=== PATIENT | female | born 1950 | race Caucasian/White ===

== ENCOUNTER 2019-01-23 04:01 | Emergency (ER) | payer OTHER ==
[~2019-01-23] VITALS: Ht 170.2 cm; Wt 81.8 kg
[2019-01-23] MEDS ORDERED: PRAL1INJ SC (04:14)
[2019-01-23] MEDS ORDERED: ACYC400T PO (04:14)
[2019-01-23] MEDS ORDERED: LOSA50TA88 PO (04:14)
[2019-01-23] MEDS ORDERED: CARD120T4 PO (04:14)
[2019-01-23] MEDS ORDERED: COUM2.5T17 PO (04:14)
[2019-01-23] MEDS ORDERED: COUM1TAB17 PO (04:14)
[2019-01-23 06:52] VITALS: BP 115/68
--- NOTE | 2019-01-23 21:34 | ECGEPIP ---
[facility] - ED Test Date: 2019-01-23 Pat Name: SHARON HOOKS Department: Room: - Gender: Female [employer] E[employer]ician: : [id number] Requested By: SHIREEN CAMACHO Order Number: [id number] Reading MD: Mery Gardner Measurements Intervals Mason Rate: 137 P: GA: 0 QRS: -23 QRSD: 94 T: -11 QT: 296 QTc: 447 Interpretive Statements ATRIAL FIBRILLATION WITH RAPID VENTRICULAR RESPONSE BORDERLINE LEFT AXIS DEVIATION MODERATE VOLTAGE CRITERIA FOR LVH, CONSIDER NORMAL VARIANT MODERATE ST DEPRESSION NO PRIOR Electronically Signed on 01-23-2019 21:34:28 EDT by Mery Gardner
== END 2019-01-23 06:53 | disposition home or self-care (01) ==
LOC: M ED 04:01
DX: I48.0 Paroxysmal atrial fibrillation (principal); I10 Essential (primary) hypertension; Z79.01 Long term (current) use of anticoagulants; Z79.899 Other long term (current) drug therapy; Z86.79 Personal history of other diseases of the circulatory system; Z88.1 Allergy status to other antibiotic agents; Z88.8 Allergy status to other drugs, medicaments and biological substances; Z91.013 Allergy to seafood